=== PATIENT | female | born 1985 | race African-American/Black ===

== ENCOUNTER 2016-11-15 20:25 | Emergency (ER) | payer OTHER, MEDICAID ==
[2016-11-15 20:54] VITALS: BP 131/79; PULSE 86
--- NOTE | 2016-11-15 21:18 | PD ---
HPI Chief Complaint sensitivity to light Date Seen: November 15, 2016 Time Seen: 21:00 Travel History International Travel<30 Days: No Contact w/Intl Traveler<30Days: No Known Affected Area: No History of Present Illness HPI Pt is a 30 y/o with IUP at 26 wks who presents for eval for sensitivity to light. Pt states that when she was at work today, she felt like it was hard to focus her eyes. States vision wasn't blurry, but she just felt like she couldn't focus well. Elizabeth like someone shining light in her eyes. Pt denies spots in vision. denies watery eyes, burning or itching. She denies headache, ruq pain, contractions, vb, lof. +FM Pt denies URI symptoms, denies fever. 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 Para: 2 : 5 Miscarriage: 2 History Past Medical History Medical History: Denies Significant Hx Obstetric History Obstetric History 2010 FT primary for distress 2013 FT repeat CD EAB x 2 Family History Family History: Negative Social History Alcohol Use: No Tobacco Use: No Substance Abuse: No Allergies-Medications (Allergen,Severity, Reaction): Coded Allergies: No Known Allergies (Verified , 05/04/14) Home Meds No Active Prescriptions or Reported Meds Review of Systems General / Constitutional: No: Fever, Weight Gain, Weight Loss, Chills, Other Eyes: Visual changes, Photophobia, No: Diploplia, Blurred Vision, Pain, Other HENT: Other, No: Headaches, Vertigo, Dental Difficulties, Lightheadedness Cardiovascular: No: Irregular Rhythm, Chest Pain or Discomfort, Palpitations, Tachycardia, Syncope, Varicosities, Edema, Cyanosis, Other Respiratory: No: Cough, Short of Breath, Wheezing, Other Gastrointestinal: No: Nausea, Vomiting, Diarrhea, Abdominal Pain, Hematemesis, Hematochezia, Constipation, Changes in Bowel Habits, Indigestion, Loss of Appetite, Other Genitourinary: No: Urgency, Frequency, Dysuria, Nocturia, Hematuria, Decreased Urinary Output, Oliguria, Hesitancy, Dribbling, Incontinence, Pelvic Pain, Dyspareunia, Discharge, Menorrhagia, Vaginal Bleeding, Other Musculoskeletal: No: Limited ROM, Weakness, Cramping, Edema, Pain, Other Skin: No Rash, No Itching, No Dryness, No Lumps, No Change in Pigmentation, No Change in Nails, No Alopecia, No Lesions, No Breast Lumps, No Breast Tenderness , No Breast Swelling, No Other Neurologic: No: Weakness, Dizziness, Syncope, Focal Abnormalities, Coordination Problem, Headache, Slurred Speech, Seizures, Other Psychiatric: No: Anxiety, Depression, Suicidal Ideations, Disorder of Thought, Mood Disorder, Substance Abuse, Homicidal Ideation, Other Endocrine: No: Heat Intolerance, Cold Intolerance, Polydipsia, Polyuria, Other Hematologic/Lymphatic: No Easy Bruising, No Lymph Node Enlargement, No Other Physical Exam VS: 131/79, 86, 18 Narrative GENERAL: Well-nourished, well-developed patient. SKIN: Warm and dry. HEAD: Normocephalic and atraumatic. EYES: mild conjunctival injection. EOMI, PERRL ENT: No nasal drainage noted. Mucous membranes pink. Airway patent. NECK: Supple, trachea midline. No JVD. CARDIOVASCULAR: Regular rate and rhythm RESPIRATORY: non-labored ABDOMEN/GI: Abdomen soft, non-tender, bowel sounds present, no rebound, no guarding Gravid GENITOURINARY: FHT's: Category: [nonreactive, reassuring for gest age ] Baseline: [140] Reactive: [-] Variability: [-] Decels: [-] EXTREMITIES: No cyanosis or edema. BACK: Nontender without obvious deformity. No CVA tenderness. NEUROLOGICAL: Awake and alert. Motor and sensory grossly within normal limits. Five out of 5 muscle strength in all muscle groups. Normal speech. Data Data Vital Signs Reviewed: Yes Orders Vital Signs (Adult) .ON ADMISSION (11/15/16 21:08) ^ Labor Status (11/15/16 21:08) MDM Narrative Course / MDM 30 y/o with IUP at 26 wks with light sensitivity --BP normal and no headache, so unlikely preeclampsia --sclera slightly injected, rec hydrating eye drops, rest; advised pt to notify Dr. Feng if symptoms do not improve or if they worsen Diagnosis Diagnosis: Primary Impression: Sensitivity to light Additional Impression: 26 weeks gestation of Disposition: DISCHARGE HOME Condition: Stable Scripts No Active Prescriptions or Reported Meds Dionicio Gomez MD November 15, 2016 21:18
== END 2016-11-15 22:08 | disposition home or self-care (01) ==
LOC: HOBED 20:25
DX: O99.89 Other specified diseases and conditions complicating pregnancy, childbirth and the puerperium (principal); H53.149 Visual discomfort, unspecified; Z3A.26 26 weeks gestation of pregnancy
CPT/HCPCS: 99284

== ENCOUNTER → 2017-01-27 | Outpatient (CLI) | payer MEDICAID | LOC: HPND 12:05 | PROVIDERS: ATTEND Obstetrics & Gynecology | DX: O41.03X0 Oligohydramnios, third trimester, not applicable or unspecified (principal) | CPT/HCPCS: 76815 ==

== ENCOUNTER 2017-02-07 09:22 | Inpatient (IN) | payer MEDICAID, OTHER ==
[2017-02-11] VITALS (9 sets, daily range): BP systolic 102–127; BP diastolic 56–71; PULSE 72–88; RESP 12–20; TEMP 97.5–98.4; O2SAT 96–98
[2017-02-11] MEDS ORDERED: LACTATED RINGER'S 1000 ML INJ 1,000 ML IV ONE (10:55)
[2017-02-11 11:09] LABS: AUTOMATED NEUTROPHIL # 5.3 TH/MM3 (1.8-7.7); BASOPHIL % 0.3 % (0.0-2.0); EOSINOPHIL # 0.1 TH/MM3 (0-0.4); EOSINOPHIL % 0.8 % (0.0-4.0); HEMATOCRIT 32.4 % (35.0-46.0); HEMO FLAGS DIFF FINAL; LYMPH % 20.2 % (9.0-44.0); LYMPHOCYTE # 1.5 TH/MM3 (1.0-4.8); MEAN CELL VOLUME 70.9 FL (80.0-100.0); MEAN CORPUSCULAR HEMOGLOBIN 22.2 PG (27.0-34.0); MEAN CORPUSCULAR HGB CONC 31.3 % (32.0-36.0); MONO % 8.5 % (0.0-8.0); NEUT % 70.2 % (16.0-70.0); PLATELET COUNT 187 TH/MM3 (150-450); RED BLOOD COUNT 4.57 MIL/MM3 (4.00-5.30); RED CELL DISTRIBUTION WIDTH 16.8 % (11.6-17.2); WHITE BLOOD COUNT 7.6 TH/MM3 (4.0-11.0)
--- NOTE | 2017-02-11 11:23 | MH ---
cc: David SHORE DATE OF ADMISSION 02/11/2017 ADMITTING DIAGNOSIS 1. Intrauterine at 39 weeks 2. Previous section, desires repeat. HISTORY OF PRESENT ILLNESS Ms. Heath is a 31-year-old black female para 2-0-1-2 who has been followed in my office for care. She has had a relatively unremarkable course and is coming in now for a repeat section. PAST OB HISTORY She has had a section in the past x2. Her Pap smear was negative in July 2016. Her CT, GC and trichomonas were all negative and 08/03. Her blood type is O+. PAST GYNECOLOGIC HISTORY Remarkable for abnormal Pap's with ascus in the Pap. Her last one was negative. PAST SURGICAL HISTORY Remarkable for a delivery in 2013. PAST MEDICAL HISTORY Remarkable for anemia. FAMILY HISTORY High blood pressure in the mother and father. SOCIAL HISTORY She does not drink, smoke, or take drugs. ALLERGIES No known drug allergies. MEDICATIONS Her current medications are: 1. Vitamins one p.o. q. Day 2. Iron one a day REVIEW OF SYSTEMS She denies any headaches, spots in front of her eyes. No shortness of breath or chest pain. No chest pressure. She denies any problems with the bowel movements or voiding. She reports good movement. No rupture of membranes or bleeding. PHYSICAL EXAM This is a well-nourished female in no acute distress resting comfortably on the gurney. VITAL SIGNS: Her weight is 309, blood pressure is 124/78. HEENT: Normocephalic, atraumatic. NECK: Supple. Trachea is in the midline. No thyromegaly or adenopathy. CHEST: Clear to auscultation and percussion. HEART: Regular rate and rhythm. ABDOMEN: Gravid, large, nontender. Pfannenstiel incision is well-healed. PELVIC: The pelvic exam is deferred. EXTREMITIES: No clubbing, cyanosis, or edema. ASSESSMENT/PLAN 1. Intrauterine at 39 weeks. 2. Previous section, desires repeat. We will go ahead and do that. She did desire a tubal ligation, however, she switched her insurance in the middle of the and we did not get tubal papers, so we will not be doing that today. 3. Positive group B Strep. She is going to get preop antibiotics anyway and we will give her two grams of Ancef. R. MD MINNIE Bethea/JOSE /10:40 AM /11:01 AM
[2017-02-11 11:24] LABS: BACTERIA, URINE RARE /hpf; BLOOD, URINE NEG (NEG); COMMENT (UR) CULT NOT INDICATED; CULTURE IF INDICATED CULT NOT INDICATED; GLUCOSE,URINE NEG (NEG); KETONE, URINE NEG (NEG); MUCUS URINE MANY /lpf (OCC); NITRITE,URINE NEG (NEG); SQUAMOUS EPITHELIAL CELL URINE 13 /hpf (0-5); URINE COLOR YELLOW (YELLW/STRAW)
[2017-02-11] MEDS ORDERED: LACTATED RINGER'S 1000 ML INJ 1,000 ML IV SCH ×2 (11:25→19:38)
[2017-02-11] MEDS ORDERED: ceFAZolin 2 GM PREMIX 50 ML IV SCH (12:00)
[2017-02-11] MEDS ORDERED: OXYTOCIN 10 UNIT/ML AMP ONE (12:18)
[2017-02-11] MEDS ORDERED: CITRIC ACID-SODIUM CITRATE LIQ 30 ML UDC PO SCH (12:30)
[2017-02-11] MEDS ORDERED: HYDROmorphone HCL PF 2 MG/ML VIAL ONE (13:47)
[2017-02-11] MEDS ORDERED: MIDAZOLAM HCL 5 MG/5 ML VIAL ONE (14:30)
[2017-02-11] MEDS ORDERED: MORPHINE SULFATE PF 5 MG/10 ML VIAL ONE (14:30)
[2017-02-11] MEDS ORDERED: fentaNYL CITRATE 250 MCG/5 ML AMP ONE (14:30)
[2017-02-11] MEDS ORDERED: KETOROLAC TROMETHAMINE 30 MG/ML (IVP) VIAL ONE (14:33)
[2017-02-11] MEDS ORDERED: ACETAMINOPHEN 1000 MG/100 ML VIAL IV ONE (14:34)
[2017-02-11] MEDS ORDERED: OXYTOCIN 30 UNITS-500ML PREMIX 500 ML IV ONE ×2 (14:45)
[2017-02-11] MEDS ORDERED: ZOLPIDEM TARTRATE 5 MG TAB PO PRN (14:45)
[2017-02-11] MEDS ORDERED: SODIUM CHLORIDE 0.9% FLUSH 10 ML FLUSH IV FLUSH PRN (14:45)
[2017-02-11] MEDS ORDERED: SIMETHICONE 80 MG CHEWABLE TAB PO PRN (14:45)
[2017-02-11] MEDS ORDERED: ONDANSETRON HCL 4 MG/2 ML VIAL IV PUSH PRN (14:45)
[2017-02-11] MEDS ORDERED: OXYTOCIN 30 UNITS-500ML PREMIX 500 ML ONE (14:57)
[2017-02-11] MEDS ORDERED: diphenhydrAMINE HCL 25 MG CAP PO PRN (17:00)
[2017-02-11] MEDS ORDERED: SODIUM CHLORIDE 0.9% FLUSH 10 ML FLUSH IV FLUSH SCH (21:00)
[2017-02-12 00:06] VITALS: BP 117/59; PULSE 91; RESP 18; TEMP 98.4
[2017-02-12] MEDS ORDERED: OXYTOCIN 30 UNITS-500ML PREMIX 500 ML IV PRN (00:45)
[2017-02-12] MEDS: oxyCODONE/ACETAMINOPHEN 5 MG/325 MG TAB PO PRN ×4 (03:51→22:49)
[2017-02-12] MEDS: IBUPROFEN 600 MG TAB PO PRN ×4 (03:51→22:50)
[2017-02-12 04:10] VITALS: BP 121/71; PULSE 87; RESP 20; TEMP 98.1
[2017-02-12 07:30] LABS: BASOPHIL % 0.2 % (0.0-2.0); EOSINOPHIL # 0.1 TH/MM3 (0-0.4); EOSINOPHIL % 0.9 % (0.0-4.0); HEMATOCRIT 26.9 % (35.0-46.0); HEMO FLAGS DIFF FINAL; LYMPH % 14.6 % (9.0-44.0); LYMPHOCYTE # 1.4 TH/MM3 (1.0-4.8); MEAN CELL VOLUME 70.9 FL (80.0-100.0); MEAN CORPUSCULAR HEMOGLOBIN 22.7 PG (27.0-34.0); MONO % 8.7 % (0.0-8.0); NEUT % 75.6 % (16.0-70.0); PLATELET COUNT 156 TH/MM3 (150-450); RED BLOOD COUNT 3.79 MIL/MM3 (4.00-5.30); RED CELL DISTRIBUTION WIDTH 17.3 % (11.6-17.2); WHITE BLOOD COUNT 9.3 TH/MM3 (4.0-11.0)
[2017-02-12 08:26] VITALS: BP 103/64; PULSE 83; RESP 16; TEMP 97.5
--- NOTE | 2017-02-12 11:06 | HHI.OB ---
Subjective Post Operative Day: 1 Remarks no complaints Objective Vitals/I&O Vital Signs Date Time Temp Pulse Resp B/P Pulse Ox O2 Delivery O2 Flow Rate FiO2 02/12/17 08:26 97.5 83 16 103/64 02/12/17 04:10 98.1 87 20 121/71 02/12/17 00:06 98.4 91 18 117/59 02/11/17 20:12 114/65 02/11/17 20:12 97.5 18 02/11/17 20:12 79 02/11/17 15:45 98.4 80 18 112/65 02/11/17 15:14 80 12 114/56 98 02/11/17 15:04 97.6 02/11/17 15:00 83 20 127/56 96 02/11/17 14:48 72 18 122/71 97 02/11/17 14:34 98 02/11/17 14:33 83 20 102/57 02/11/17 14:20 98 02/11/17 14:20 97.5 88 16 110/64 Result Diagram: 02/12/17 0642 Objective Remarks GENERAL: Well-nourished, well-developed patient. CARDIOVASCULAR: Regular rate and rhythm without murmurs, gallops, or rubs. RESPIRATORY: Breath sounds equal bilaterally. No accessory muscle use. ABDOMEN/GI: Abdomen soft, non-tender, bowel sounds present. Incision: dressing Clean, dry and intact. Fundus: Firm, non-tender at umbilicus. GENITOURINARY: Light to moderate bleeding. EXTREMITIES: No cyanosis or edema, non-tender, without signs of DVT. Medications and IVs Current Medications Medications (Trade) Dose Ordered Sig/Ke Route Start Time Stop Time Status Last Admin (Lr 1000 ml Inj) 1,000 ml @ 100 mls/hr Q10H IV 02/11/17 19:38 02/12/17 15:37 02/11/17 20:20 (NS Flush) 2 ml BID IV FLUSH 02/11/17 21:00 (NS Flush) 2 ml UNSCH PRN IV FLUSH 02/11/17 14:45 (Mylicon Chew) 80 mg QID PRN PO 02/11/17 14:45 (Motrin) 600 mg Q6H PRN PO 02/11/17 14:45 02/12/17 03:51 (Percocet 5-325 Mg) 1 tab Q4H PRN PO 02/11/17 14:45 02/12/17 03:51 (Percocet 5-325 Mg) 2 tab Q4H PRN PO 02/11/17 14:45 (Shelia-Colace) 2 tab Q12H PRN PO 02/11/17 14:45 (Ambien) 5 mg HS PRN PO 02/11/17 14:45 (M-M-R Ii Inj) 0.5 ml ONCE ONCE SQ 02/12/17 16:00 02/12/17 16:01 (Boostrix Inj) 0.5 ml ONCE ONCE IM 02/12/17 16:00 02/12/17 16:01 02/12/17 04:00 (Zofran Inj) 4 mg Q6H PRN IV PUSH 02/11/17 14:45 (Benadryl) 25 mg Q4H PRN PO 02/11/17 17:00 02/12/17 00:04 Assessment/Plan Problem List: (1) delivery delivered Assessment and Plan POD #1 C/S dr Feng, pt doing well Discharge Planning routine Attending Attestation pt seen by Nunu Butler MD Feb 12, 2017 11:06
[2017-02-12] MEDS: DOCUSATE SODIUM 50 MG/SENNA 8.6 MG TAB PO PRN ×2 (11:20→22:50)
[2017-02-12 11:56] VITALS: BP 106/67; PULSE 98; RESP 16; TEMP 97.8
[2017-02-12] MEDS ORDERED: DIPHTH/TETANUS/ACEL PERTUSSIS (BOOSTER) 0.5 ML VIAL/PFS IM ONE (16:00)
[2017-02-12] MEDS ORDERED: MEASLES, MUMPS, RUBELLA VACCINE 0.5 ML VIAL SQ ONE (16:00)
[2017-02-12 20:10] VITALS: BP 109/65; PULSE 96; RESP 18; TEMP 97.4; O2SAT 100
[2017-02-13] MEDS: IBUPROFEN 600 MG TAB PO PRN ×3 (04:48→17:24)
[2017-02-13] MEDS: oxyCODONE/ACETAMINOPHEN 5 MG/325 MG TAB PO PRN ×3 (04:48→17:24)
[2017-02-13 08:00] VITALS: BP 113/72; PULSE 102; PULSE 76; RESP 16; RESP 7; RESP 9; TEMP 98.1
--- NOTE | 2017-02-13 09:49 | HHI.OB ---
Subjective Post Operative Day: 2 Remarks no complaints, walking hallways Objective Vitals/I&O Vital Signs Date Time Temp Pulse Resp B/P Pulse Ox O2 Delivery O2 Flow Rate FiO2 02/13/17 08:00 76 7 02/13/17 08:00 16 02/13/17 08:00 98.1 102 9 113/72 02/12/17 20:10 97.4 96 18 100 02/12/17 20:10 109/65 02/12/17 11:56 97.8 98 16 106/67 Result Diagram: 02/12/17 0642 Objective Remarks GENERAL: Well-nourished, well-developed patient. CARDIOVASCULAR: Regular rate and rhythm without murmurs, gallops, or rubs. RESPIRATORY: Breath sounds equal bilaterally. No accessory muscle use. ABDOMEN/GI: Abdomen soft, non-tender, bowel sounds present. Incision: Clean, dry and intact. Fundus: Firm, non-tender at umbilicus. GENITOURINARY: Light to moderate bleeding. EXTREMITIES: No cyanosis or edema, non-tender, without signs of DVT. Medications and IVs Current Medications Medications (Trade) Dose Ordered Sig/Ke Route Start Time Stop Time Status Last Admin (NS Flush) 2 ml BID IV FLUSH 02/11/17 21:00 (NS Flush) 2 ml UNSCH PRN IV FLUSH 02/11/17 14:45 (Mylicon Chew) 80 mg QID PRN PO 02/11/17 14:45 02/12/17 17:22 (Motrin) 600 mg Q6H PRN PO 02/11/17 14:45 02/13/17 04:48 (Percocet 5-325 Mg) 1 tab Q4H PRN PO 02/11/17 14:45 02/13/17 04:48 (Percocet 5-325 Mg) 2 tab Q4H PRN PO 02/11/17 14:45 02/12/17 17:18 (Hselia-Colace) 2 tab Q12H PRN PO 02/11/17 14:45 02/12/17 22:50 (Ambien) 5 mg HS PRN PO 02/11/17 14:45 (Zofran Inj) 4 mg Q6H PRN IV PUSH 02/11/17 14:45 (Benadryl) 25 mg Q4H PRN PO 02/11/17 17:00 02/12/17 00:04 Assessment/Plan Problem List: (1) delivery delivered Assessment and Plan POD #2 C/S dr Feng, pt doing well Discharge Planning routine Attending Attestation pt seen by Nunu Butler MD Feb 13, 2017 09:49
[2017-02-13] MEDS: DOCUSATE SODIUM 50 MG/SENNA 8.6 MG TAB PO PRN (10:55)
[2017-02-14] MEDS: IBUPROFEN 600 MG TAB PO PRN ×3 (01:23→14:24)
[2017-02-14] MEDS: DOCUSATE SODIUM 50 MG/SENNA 8.6 MG TAB PO PRN (01:23)
[2017-02-14] MEDS: oxyCODONE/ACETAMINOPHEN 5 MG/325 MG TAB PO PRN ×2 (01:23→08:46)
[2017-02-14 08:00] VITALS: BP 117/73; PULSE 97; RESP 18; TEMP 97.4
--- NOTE | 2017-02-14 09:47 | HHI.OB ---
Subjective Post Operative Day: 3 Objective Vitals/I&O Vital Signs Date Time Temp Pulse Resp B/P Pulse Ox O2 Delivery O2 Flow Rate FiO2 02/14/17 08:00 97.4 97 18 117/73 Result Diagram: 02/12/17 0642 Objective Remarks GENERAL: Well-nourished, well-developed patient. CARDIOVASCULAR: Regular rate and rhythm without murmurs, gallops, or rubs. RESPIRATORY: Breath sounds equal bilaterally. No accessory muscle use. ABDOMEN/GI: Abdomen soft, non-tender, bowel sounds present. Incision: steri strip Clean, dry and intact. Fundus: Firm, non-tender at umbilicus. GENITOURINARY: Light to moderate bleeding. EXTREMITIES: No cyanosis or edema, non-tender, without signs of DVT. Medications and IVs Current Medications Medications (Trade) Dose Ordered Sig/Ke Route Start Time Stop Time Status Last Admin (NS Flush) 2 ml BID IV FLUSH 02/11/17 21:00 (NS Flush) 2 ml UNSCH PRN IV FLUSH 02/11/17 14:45 (Mylicon Chew) 80 mg QID PRN PO 02/11/17 14:45 02/12/17 17:22 (Motrin) 600 mg Q6H PRN PO 02/11/17 14:45 02/14/17 08:46 (Percocet 5-325 Mg) 1 tab Q4H PRN PO 02/11/17 14:45 02/14/17 08:46 (Percocet 5-325 Mg) 2 tab Q4H PRN PO 02/11/17 14:45 02/13/17 09:49 (Shelia-Colace) 2 tab Q12H PRN PO 02/11/17 14:45 02/14/17 01:23 (Ambien) 5 mg HS PRN PO 02/11/17 14:45 (Zofran Inj) 4 mg Q6H PRN IV PUSH 02/11/17 14:45 (Benadryl) 25 mg Q4H PRN PO 02/11/17 17:00 02/12/17 00:04 Assessment/Plan Problem List: (1) delivery delivered Plan: routine (2) Anemia Plan: treat pp Assessment and Plan POD #3 pt doing well pain well managed with oral pain medication ambulate without diff routine care Discharge Planning today Jayda Ybarra Feb 14, 2017 09:47
--- NOTE | 2017-02-14 09:48 | HHI.DCPOC ---
Discharge Care Plan Diagnosis: (1) delivery delivered (2) Anemia Your Health Problems Are: delivery Report Symptoms to Your Doctor -Temperature above 100.5 degrees -Redness, of incision or excessive or foul smelling drainage -Unusual pain or calf pain -Increased vaginal bleeding -Painful or difficulty urinating -Feelings of extreme sadness or anxiety after 2 weeks Goals to Promote Your Health * To prevent worsening of your condition and complications * To maintain your health at the optimal level Directions to Meet Your Goals Take your medications as prescribed Follow your dietary instruction Follow activity as directed Ensure plenty of rest for recovery Drink fluids for hydration Keep your appointments as scheduled Take your immunizations and boosters as scheduled If your symptoms worsen call your PCP, if no PCP go to Urgent Care Center or Emergency Room Smoking is Dangerous to Your Health. Avoid second hand smoke Call the 24-hour crisis hotline for domestic abuse at Jayda Ybarra Feb 14, 2017 09:47
--- NOTE | 2017-02-14 09:53 | HHI.DS ---
Admission Date Feb 11, 2017 at 09:42 Discharge Date: Feb 14, 2017 Admitting Diagnosis term breech previous c section desires sterilization anemia Diagnosis: (1) delivery delivered Diagnosis: Principal (2) Anemia Diagnosis: Principal Delivery Date: Feb 11, 2017 : Repeat Reason: with bilateral tubal ligation : Male Brief History term previous c section breech presentation Hospital Course repeat c section and bilateral tubal ligation routine Pt Condition on Discharge: Good Discharge Disposition: Discharge Home Discharge Instructions Diet Instructions: As Tolerated, No Restrictions Additional Diet Instructions: Drink at least 8 - 16 oz bottles of water a day Activities You Can Perform: Shower Only-No Bath Activities to Avoid: Prolonged Standing, Strenuous Activity, Sexual Activity Additional Activity Instruc.: No driving until off pain medications Do not lift anything heavier than your baby in an carrier Follow up Referrals: CASTING REPAIRER - 1 Week @ [facility] Jayda Ybarra Feb 14, 2017 09:52
[2017-02-14] MEDS ORDERED: IBUP-232 PO (12:49)
[2017-02-14] MEDS ORDERED: OXYC1TAB63 PO (12:49)
--- NOTE | 2017-02-15 11:28 | MP ---
cc: MONEAMISHA DATE OF OPERATION February 11, 2017. PREOPERATIVE DIAGNOSES 1. Intrauterine at 39+ weeks 2. Desires repeat . POSTOPERATIVE DIAGNOSES. 1. Intrauterine at 39+ weeks. 2. Breech presentation. 3. Desires repeat . PROCEDURE Repeat low transverse section anesthesia. ANESTHESIA Spinal. SURGEON David Feng MD FINDINGS A normal uterus, normal tubes, normal ovaries. Breech with good Apgars. COMPLICATIONS None. COUNTS Correct. ESTIMATED BLOOD LOSS 500 cc. FLUIDS Crystalloids. DISPOSITION The patient tolerated the procedure well and went to Recovery room in good condition. OPERATIVE PROCEDURE The patient was taken to the operating room, identified by name band and verbally given a spinal anesthetic and prepped and draped in the usual sterile fashion for a section. The Nava catheter was inserted and a time-out was taken. At this time a Pfannenstiel incision was made, carried down to the fascia. The fascia was taken off the rectus muscles by blunt and sharp dissection. The rectus muscles were spread bluntly and the peritoneum entered under direct vision. A bladder flap was attempted. It was kind of scarred down and once this had been achieved, the uterus was scored in a transverse manner along the lower uterine segment and taken down until the uterine cavity was entered. Clear fluid was noted. I felt for the vertex, but there was a butt. I grabbed for the feet. I got both feet and gently rotated the baby out, reduced the arms, reduced the head and delivered the baby. Hypopharynx and nasopharynx were suctioned and the cord was left for 45 seconds. The cord was then doubly clamped and cut and the handed to the resuscitation team present. The placenta was removed manually. I could not create a donation because she lives in [place]. The uterus was then curettaged several times with a wet lap. The uterine incision was then repaired after the uterus was delivered from the abdomen in two layers with 0 Vicryl, the second layer imbricating the first in a running fashion. The cul-de-sac and gutters were cleaned of blood and debris. The uterus was delivered back into the abdomen. The muscles were reapproximated with 0 Vicryl interrupted. The fascia was repaired with 0 Vicryl in a running fashion from lateral to midline bilaterally. The subcu was repaired with a 3-0 Vicryl. The skin was repaired with 4-0 Monocryl. She tolerated the procedure well and went to the recovery room in good condition. R. MD MINNIE Bethea/MEGAN /12:49 PM /11:18 AM
== END 2017-02-14 14:53 | disposition home or self-care (01) | DRG 766 ==
LOC: H2EB 02-11 09:42 → H1EA 02-11 15:36
PROVIDERS: ADMIT Obstetrics & Gynecology; ATTEND Obstetrics & Gynecology
PROC: 10D00Z1 Extraction of Products of Conception, Low, Open Approach (ICD-10-PCS; principal; 2017-02-11)
DX: O34.211 Maternal care for low transverse scar from previous cesarean delivery (principal); D64.9 Anemia, unspecified; Z37.0 Single live birth; O32.1XX0 Maternal care for breech presentation, not applicable or unspecified; O99.02 Anemia complicating childbirth; Z3A.39 39 weeks gestation of pregnancy; Z30.2 Encounter for sterilization
CPT/HCPCS: 59025; 81001; 85025; 86850; 86900; 86901; 90715; J0131; J0690; J1170; J1885; J2250; J2274; J2590; J3010; J7120

== ENCOUNTER 2017-02-22 15:37 | Inpatient (IN) | payer MEDICAID ==
[2017-02-22] VITALS (95 sets, daily range): BP systolic 157–191; BP diastolic 69–100; PULSE 64–115; RESP 18–24; TEMP 98.9–99.7; O2SAT 74–100
[~2017-02-22] VITALS: Ht 177.8 cm; Wt 137.8 kg
[~2017-02-22 15:37] MED LIST: IBUP-232 PO; OXYC1TAB63 PO
[2017-02-22] MEDS ORDERED: LABETALOL HCL 100 MG/20 ML VIAL ONE (16:30)
[2017-02-22] MEDS ORDERED: LABETALOL HCL 100 MG/20 ML VIAL IV PUSH ONE ×2 (16:30→17:15)
[2017-02-22 16:59] LABS: HEMATOCRIT 26.7 % (35.0-46.0); MEAN CORPUSCULAR HEMOGLOBIN 22.9 PG (27.0-34.0); MEAN CORPUSCULAR HGB CONC 32.7 % (32.0-36.0); PLATELET COUNT 245 TH/MM3 (150-450); RED BLOOD COUNT 3.81 MIL/MM3 (4.00-5.30); RED CELL DISTRIBUTION WIDTH 17.5 % (11.6-17.2); REVIEW FLAG FINAL; WHITE BLOOD COUNT 6.5 TH/MM3 (4.0-11.0)
[2017-02-22 17:01] LABS: BACTERIA, URINE RARE /hpf; BLOOD, URINE SMALL (NEG); COMMENT (UR) CULT NOT INDICATED; CULTURE IF INDICATED CULT NOT INDICATED; GLUCOSE,URINE NEG (NEG); HYALINE CAST, URINE 2 /lpf (RARE); KETONE, URINE NEG (NEG); MUCUS URINE FEW /lpf (OCC); NITRITE,URINE NEG (NEG); PH, URINE 5.5 (5.0-8.5); SQUAMOUS EPITHELIAL CELL URINE 1 /hpf (0-5); URINE COLOR YELLOW (YELLW/STRAW)
[2017-02-22] MEDS ORDERED: ONDANSETRON HCL 4 MG/2 ML VIAL IV PRN (17:30)
[2017-02-22] MEDS ORDERED: IBUPROFEN 800 MG TAB PO PRN (17:30)
[2017-02-22] MEDS ORDERED: SODIUM CHLORIDE 0.9% FLUSH 5 ML FLUSH IV PRN (17:30)
[2017-02-22] MEDS ORDERED: hydrALAZINE HCL 20 MG/ML VIAL IV PUSH PRN ×2 (17:30→17:45)
[2017-02-22] MEDS ORDERED: ACETAMINOPHEN 325 MG TAB PO PRN (17:30)
[2017-02-22] MEDS ORDERED: ONDANSETRON ODT 4 MG TAB PO PRN (17:30)
[2017-02-22] MEDS ORDERED: DOCUSATE SODIUM 100 MG CAP PO PRN (17:30)
[2017-02-22 17:42] LABS: ALT (GPT) 44 U/L (10-53); ANION GAP 6 MEQ/L (5-15); AST (GOT) 21 U/L (15-37); BICARBONATE 29.7 MEQ/L (21.0-32.0); BLOOD UREA NITROGEN 13 MG/DL (7-18); CHLORIDE 107 MEQ/L (98-107); GLOMERULAR FILTRATION RATE 90 ML/MIN (>89); POTASSIUM 3.9 MEQ/L (3.5-5.1); SODIUM (NA) 143 MEQ/L (136-145); URIC ACID 8.7 MG/DL (2.6-6.0)
[2017-02-22 17:44] LABS: ALKALINE PHOSPHATASE 87 U/L (45-117); TOTAL BILIRUBIN ADULT 0.2 MG/DL (0.2-1.0)
--- NOTE | 2017-02-22 18:02 | HHI.HP ---
History & Physical H&P HPI Chief Complaint elevated blood pressure, headache Date Seen: Feb 22, 2017 Time Seen: 17:00 Travel History International Travel<30 Days: No Contact w/Intl Traveler<30Days: No Known Affected Area: No History of Present Illness HPI Pt is a 31 y/o s/p repeat delivery on 02/11/17 who presents for evaluation of headache, increased BP. PT states she woke up around 5 am with headache. Progressively worse throughout the morning. took some ibuprofen at 11 am with no relief. took BP and was "high". Called Dr. Feng's office and was told to come in for evaluation. PT denies h/o hypertension except about 2 weeks after her last delivery. states she took BP medication for a few weeks then was able to d/c. Denies blood pressure issues during this . Pt denies visual changes, ruq pain. She reports some mild swelling of left foot /ankle. Denies fever, incision issues. has been ambulating, voiding well. Bottle feeding baby. Para: 3 : 5 History (Limited) History Past Medical History Narrative Medical obesity Past Surgical History Narrative Surgical x 3 Family History Family History: Negative Social History Alcohol Use: No Tobacco Use: No Substance Abuse: No Allergies-Medications Allergies-Medications (Allergen,Severity, Reaction): Coded Allergies: No Known Allergies (Verified , 02/11/17) Home Meds Active Scripts Oxycodone-Acetaminophen 5-325 mg Tab1 Tab PO Q4H #30 TAB Prov:David Feng MD 02/14/17 Ibuprofen 600 Mg [id number] Mg PO Q6H #30 TAB Prov:David Feng MD 02/14/17 Narrative Medication pt states she last took percocet 2 days ago. ROS Review of Systems General / Constitutional: No: Fever, Chills Eyes: No: Diploplia, Blurred Vision HENT: Headaches Cardiovascular: No: Irregular Rhythm, Chest Pain or Discomfort, Palpitations, Tachycardia, Syncope, Varicosities, Edema, Cyanosis, Other Respiratory: No: Cough, Short of Breath, Wheezing, Other Gastrointestinal: No: Nausea, Vomiting, Diarrhea, Abdominal Pain, Hematemesis, Hematochezia, Constipation, Changes in Bowel Habits, Indigestion, Loss of Appetite, Other Musculoskeletal: Edema Skin: No Rash, No Itching, No Dryness, No Lumps, No Change in Pigmentation, No Change in Nails, No Alopecia, No Lesions, No Breast Lumps, No Breast Tenderness , No Breast Swelling, No Other Neurologic: No: Weakness, Dizziness, Syncope, Focal Abnormalities, Coordination Problem, Headache, Slurred Speech, Seizures, Other Psychiatric: No: Anxiety, Depression, Suicidal Ideations, Disorder of Thought, Mood Disorder, Substance Abuse, Homicidal Ideation, Other Physical Exam Physical Exam Vital Signs Date Time Temp Pulse Resp B/P Pulse Ox O2 Delivery O2 Flow Rate FiO2 02/22/17 17:45 70 97 02/22/17 17:41 66 169/89 02/22/17 17:36 66 179/87 02/22/17 17:35 68 100 02/22/17 17:34 66 181/90 02/22/17 17:30 69 100 02/22/17 17:26 69 186/87 02/22/17 17:25 69 100 02/22/17 17:20 66 187/92 100 02/22/17 17:20 67 02/22/17 17:15 68 100 02/22/17 17:10 71 100 02/22/17 17:06 73 183/94 02/22/17 17:05 67 100 02/22/17 17:02 69 186/94 02/22/17 17:02 24 02/22/17 17:00 72 99 02/22/17 16:58 71 185/97 02/22/17 16:56 66 190/100 02/22/17 16:55 64 100 02/22/17 16:40 69 93 02/22/17 16:31 72 174/94 02/22/17 16:30 70 97 02/22/17 16:26 64 182/97 02/22/17 16:25 69 96 Narrative GENERAL: Well-nourished, well-developed patient. SKIN: Warm and dry. HEAD: Normocephalic and atraumatic. EYES: No scleral icterus. No injection or drainage. ENT: No nasal drainage noted. Mucous membranes pink. Airway patent. NECK: Supple, trachea midline. No JVD. CARDIOVASCULAR: Regular rate and rhythm without murmurs, gallops, or rubs. RESPIRATORY: Breath sounds equal bilaterally. No accessory muscle use. BREASTS: Bilateral exam showed no masses , no retractions, no nipple discharge. ABDOMEN/GI: Abdomen soft, non-tender, bowel sounds present, no rebound, no guarding incision c/d/i EXTREMITIES: No cyanosis. trace ankle edema. BACK: Nontender without obvious deformity. No CVA tenderness. NEUROLOGICAL: Awake and alert. Motor and sensory grossly within normal limits. Five out of 5 muscle strength in all muscle groups. Normal speech. unable to elicit patellar DTRs. 2+ biceps DTRs Data Data Data Orders Vital Signs (Adult) .ON ADMISSION (02/22/17 16:25) ^ Labor Status (02/22/17 16:25) Urinalysis - C+S If Indicated (02/22/17 16:25) Cbc No Diff, Includes Plts (02/22/17 16:25) Comprehensive Metabolic Panel (02/22/17 16:25) Uric Acid (02/22/17 16:25) Protein Creat Ratio, Random Ur (02/22/17 16:25) Labetalol Inj (Trandate Inj) (02/22/17 16:30) Labetalol Inj (Trandate Inj) (02/22/17 16:30) Labetalol Inj (Trandate Inj) (02/22/17 17:15) Place In Observation (02/22/17 ) Code Status (02/22/17 17:18) Resp Pulse Oximetry (02/22/17 ) Activity Bed Rest (02/22/17 17:18) Intake + Output Q1H (02/22/17 17:18) Notify Parameters (02/22/17 17:18) ^ Check Deep Tendon Reflexes Q1H (02/22/17 17:18) Diet Liquid (02/22/17 Dinner) Lactated Ringer's 1000 Ml Inj (Lr 1000 M (02/22/17 17:18) Sodium Chloride 0.9% Flush (Ns Flush) (02/22/17 17:30) Sodium Chloride 0.9% Flush (Ns Flush) (02/22/17 21:00) Hydralazine Inj (Apresoline Inj) (02/22/17 17:30) Hydralazine Inj (Apresoline Inj) (02/22/17 17:45) Acetaminophen (Tylenol) (02/22/17 17:30) Ondansetron Inj (Zofran Inj) (02/22/17 17:30) Ondansetron Odt (Zofran Odt) (02/22/17 17:30) Docusate Sodium (Colace) (02/22/17 17:30) Labetalol (Trandate) (02/22/17 21:00) Ibuprofen (Motrin) (02/22/17 17:30) Ob (2e) Additional Admit Info (02/22/17 17:43) Labs Laboratory Tests Test 02/22/17 16:45 White Blood Count 6.5 Red Blood Count 3.81 Hemoglobin 8.7 Hematocrit 26.7 Mean Corpuscular Volume 70.0 Mean Corpuscular Hemoglobin 22.9 Mean Corpuscular Hemoglobin 32.7 Concent Red Cell Distribution Width 17.5 Platelet Count 245 Mean Platelet Volume 8.8 Urine Color YELLOW Urine Turbidity HAZY Urine pH 5.5 Urine Specific [place] 1.021 Urine Protein TRACE Urine Glucose (UA) NEG Urine Ketones NEG Urine Occult Blood SMALL Urine Nitrite NEG Urine Bilirubin NEG Urine Urobilinogen LESS THAN 2.0 Urine Leukocyte Esterase MOD Urine RBC 1 Urine WBC 7 Urine Squamous Epithelial 1 Cells Urine Bacteria RARE Urine Hyaline Casts 2 Urine Mucus FEW Microscopic Urinalysis Comment CULT NOT INDICATED Sodium Level 143 Potassium Level 3.9 Chloride Level 107 Carbon Dioxide Level 29.7 Anion Gap 6 Blood Urea Nitrogen 13 Creatinine 0.89 Estimat Glomerular Filtration 90 Rate Random Glucose 73 Uric Acid 8.7 Calcium Level 8.5 Total Bilirubin 0.2 Aspartate Amino Transf 21 (AST/SGOT) Alanine Aminotransferase 44 (ALT/SGPT) Alkaline Phosphatase 87 Total Protein 6.6 Albumin 3.1 MDM MDM Narrative Course / MDM 31 y/o s/p repeat on 02/11/17 with new-onset elevated BP, severe range BP IV labetalol 20 mg given at 1630 IV labetalol 40 mg given 15 minutes later start po labetalol 200 mg bid admit for observation, blood pressure control d/w Dr. Feng. Dioincio Gomez MD Feb 22, 2017 18:02
[2017-02-22] MEDS ORDERED: MORPHINE SULFATE 4 MG/ML INJ IV ONE (18:45)
[2017-02-22] MEDS: LACTATED RINGER'S 1000 ML INJ 1,000 ML IV SCH (18:49)
[2017-02-22] MEDS: SODIUM CHLORIDE 0.9% FLUSH 5 ML FLUSH IV SCH (19:28)
[2017-02-22] MEDS ORDERED: hydrALAZINE HCL 20 MG/ML VIAL ONE (20:20)
[2017-02-22] MEDS ORDERED: hydrALAZINE HCL 20 MG/ML VIAL IV PUSH ONE (20:45)
[2017-02-22] MEDS ORDERED: cloNIDine HCL 0.1 MG TAB PO SCH (21:00)
[2017-02-22] MEDS ORDERED: LABETALOL HCL 200 MG TAB PO SCH ×2 (21:00→22:15)
[2017-02-22] MEDS ORDERED: IOHEXOL 350 MG/ML 10 ML VIAL (for RAD DIAG) IV ONE (21:13)
--- NOTE | 2017-02-22 21:30 | RADRPT ---
EXAM DATE/TIME: 02/22/2017 20:50 [facility] COMPARISON: No previous studies available for comparison. INDICATIONS : Shortness of breath. Evaluate for pulmonary embolism. IV CONTRAST: 75 cc Omnipaque 350 (iohexol) IV RADIATION DOSE: 25.80 CTDIvol (mGy) MEDICAL HISTORY : None SURGICAL HISTORY : None. ENCOUNTER: Initial ACUITY: 1 day PAIN SCALE: 5/10 LOCATION: chest TECHNIQUE: Volumetric scanning of the chest was performed using a pulmonary embolism protocol MIP images were re constructed. Using automated exposure control and adjustment of the mA and/or kV according to patien t size, radiation dose was kept as low as reasonably achievable to obtain optimal diagnostic quality images. DICOM format image data is available electronically for review and comparison. Follow-up recommendations for incidentally detected pulmonary nodules are based at a minimum on nodul e size and patient risk factors according to Fleischner Society Guidelines. FINDINGS: No filling defects identified to suggest pulmonary embolic disease. There is groundglass opacity in b oth lungs with small effusions. Differential diagnosis includes edema or other pneumonitis. No acute findings in the upper abdomen. CONCLUSION: 1. Negative for pulmonary embolism. 2. Groundglass opacity in the lungs especially basilar with small effusions. Differential diagnosis i ncludes edema and some form of pneumonitis. Mitesh Tran MD on February 22, 2017 at 21:27 Board Certified Radiologist. This report was verified electronically.
[2017-02-22] MEDS ORDERED: hydrALAZINE HCL 20 MG/ML VIAL IV SCH (21:45)
[2017-02-22] MEDS ORDERED: hydrALAZINE HCL 20 MG/ML VIAL IV PRN (21:46)
--- NOTE | 2017-02-22 22:52 | RADRPT ---
EXAM DATE/TIME: 02/22/2017 22:26 [facility] COMPARISON: No previous studies available for comparison. INDICATIONS : Shortness of breath. MEDICAL HISTORY : Hypertension. SURGICAL HISTORY : None. ENCOUNTER: Initial ACUITY: 1 day PAIN SCORE: 0/10 LOCATION: Bilateral chest FINDINGS: A single view of the chest demonstrates bilateral mostly basilar airspace disease. No significant eff usion. No pneumothorax. Heart size mildly enlarged. CONCLUSION: 1. Mild basal airspace disease. Mild cardiomegaly. No effusion or pneumothorax. Mitesh Tran MD on February 22, 2017 at 22:49 Board Certified Radiologist. This report was verified electronically.
--- NOTE | 2017-02-22 23:00 | PD ---
History of Present Illness Date Seen: Feb 22, 2017 Time Seen: 22:45 History of Present Illness Called to see patient by charge nurse secondary to status change Pt shivering. states headache 12/25, previously 10 feels some shortness of breath Pt continues to have elevated blood pressures: 160s-180s/70s-90s O2 sats currently 92% on room air + cough (new) gen: shivering, alert and oriented heent: eyelids swollen CV: reg rate and rhythm lungs: crackles in RLL ext: SCDs on LE a/p: 31 y/o POD 10 s/p repeat with acute onset hypertensive emergency, headache now with SOB, decreased oxygen sat CT-A neg for PE but ground glass opacities noted, suspect pulmonary edema CXR, EKG, ABG ordered transfer to critical care for telemetry, critical care consult d/w Dionicio Looney MD Feb 22, 2017 23:00
[2017-02-22 23:17] LABS: BLOOD GAS BASE EXCESS 0.2 mmol/L (-2-2); BLOOD GAS CARBOXYHEMOGLOBIN 1.7 % (0-4); BLOOD GAS HCO3 24 mmol/L (22-26); BLOOD GAS O2 HGB SATURATION 97 % (90-100); BLOOD GAS OXYGEN CONTENT 12.4 Vol % (12.0-20.0); BLOOD GAS PCO2 34 mmHg (38-42); BLOOD GAS PO2 285 mmHg (61-120); BLOOD GAS TOTAL HGB 8.6 G/DL (12.0-16.0); CRITICAL VALUE NO; LITER FLOW 15 L/M; TEMP CORR TO 98.6
[2017-02-22 23:18] LABS: DRAW SITE LT RADIAL; NUMBER OF ARTERIAL PUNCTURES 2; STAT YES
[2017-02-23] VITALS (14 sets, daily range): BP systolic 129–183; BP diastolic 62–95; PULSE 76–102; RESP 18–22; TEMP 98.2; O2SAT 98–99
[2017-02-23] MEDS ORDERED: CHLORHEXIDINE GLUCONATE 2 % 1 PACK (2 CLOTHS)(extra cloths) TOPICAL PRN (00:30)
[2017-02-23] MEDS ORDERED: hydrALAZINE HCL 20 MG/ML VIAL IV PUSH ONE (01:15)
[2017-02-23] MEDS ORDERED: LABETALOL HCL 100 MG/20 ML VIAL IV PUSH ONE (01:15)
[2017-02-23] MEDS ORDERED: LABETALOL HCL 100 MG/20 ML VIAL IV PUSH PRN (01:15)
[2017-02-23] MEDS ORDERED: niCARdipine INJ 25 MG in SODIUM CHLOR 0.9% 250 ML INJ 250 ML IV SCH (01:15)
[2017-02-23] MEDS ORDERED: NITROGLYCERIN 2% OINT 1 GM PACKET TOPICAL PRN (01:15)
--- NOTE | 2017-02-23 01:35 | PD.CONS ---
[facility] Service Critical Care Medicine Consult Requested By Dr. Gmoez Reason for Consult Management of hypertension Primary Care Physician No Primary Care Physician History of Present Illness 31-year-old AA female. Date of admission 02/22/2017. Date of consultation 2016. Past medical history includes elevated BMI. She has a history of hypertension for last delivery. She presents to [facility] with acute onset of headache/throbbing 1010 since 5 AM on 02/22. She attempted to take ibuprofen with no relief. She called her [employer] physician who recommended evaluations in the ED. Patient was noted to have an elevated systolic blood pressure. CT pulmonary angiogram revealed groundglass opacities without pulmonary embolism. Liver function tests within normal limits. Trace protein in urine. Platelets within normal limits. She had a microcytic anemia. Elevated uric acid 8.7. Patient denied abdominal pain. Patient had some chest pain which is since resolved. She received 60 mg labetalol IV, 400 mg by mouth labetalol, clonidine 0.1 mg and hydralazine 10 mg. She is transferred to the ICU for further evaluation treatment from [employer]. EKG revealed normal sinus rhythm of 83 with normal MS, QRS and QT intervals. Review of Systems Constitutional: COMPLAINS OF: Weight loss, DENIES: Fatigue, Fever, Weight gain Endocrine: COMPLAINS OF: Abnorml menstrual pattern Eyes: DENIES: Blurred vision, Double Vision Ears, nose, mouth, throat: DENIES: Hearing loss, Ear Pain, Running Nose Respiratory: DENIES: Shortness of breath Cardiovascular: COMPLAINS OF: Chest pain Gastrointestinal: DENIES: Abdominal pain, Nausea, Vomiting Musculoskeletal: COMPLAINS OF: Joint Swelling, DENIES: Joint pain Integumentary: DENIES: Abnormal pigmentation Hematologic/lymphatic: DENIES: Bruising Immunologic/allergic: DENIES: Eczema Neurologic: COMPLAINS OF: Headache, DENIES: Abnormal gait, Localized weakness Psychiatric: DENIES: Anxiety Past Family Social History Allergies: Coded Allergies: No Known Allergies (Verified , 02/11/17) Past Medical History Elevated BMI History of hypertension Past Surgical History Ariton teeth/root canal History of 3 was recent 01/31 Reported Medications Ibuprofen 800 mg by mouth every 8 hours [place] 5/325 as needed Active Ordered Medications Reviewed in EMR Family History Mother and father with hypertension Social History Denies tobacco, alcohol or IV drug use Physical Exam Vital Signs Vital Signs Date Time Temp Pulse Resp B/P Pulse Ox O2 Delivery O2 Flow Rate FiO2 02/22/17 23:05 80 100 02/22/17 23:03 82 18 178/89 02/22/17 23:03 20 02/22/17 23:00 79 100 02/22/17 22:55 81 100 02/22/17 22:45 84 100 02/22/17 22:40 100 Non-Rebreather 15.00 02/22/17 22:40 100 02/22/17 22:35 100 89 02/22/17 22:33 90 02/22/17 22:30 109 80 02/22/17 22:29 91 174/69 02/22/17 22:28 99.7 02/22/17 22:25 96 74 02/22/17 22:25 101 02/22/17 22:19 22 02/22/17 22:18 101 181/95 02/22/17 22:10 107 02/22/17 22:05 113 93 02/22/17 22:04 98.9 02/22/17 22:00 115 90 02/22/17 21:55 104 94 02/22/17 21:50 85 99 02/22/17 21:45 77 100 02/22/17 21:40 77 100 02/22/17 21:35 74 02/22/17 21:35 72 186/99 100 02/22/17 20:41 76 157/99 02/22/17 20:40 75 99 02/22/17 20:35 71 97 02/22/17 20:31 75 185/96 02/22/17 20:30 72 98 02/22/17 20:26 73 179/84 02/22/17 20:25 96 02/22/17 20:25 74 02/22/17 20:20 71 96 02/22/17 20:15 72 96 02/22/17 20:10 79 96 02/22/17 20:05 71 97 02/22/17 20:01 67 191/98 02/22/17 20:00 73 95 02/22/17 19:55 72 92 02/22/17 19:50 74 93 02/22/17 19:45 72 99 02/22/17 19:40 73 96 02/22/17 19:35 75 92 8/8/17 19:31 72 178/96 8/17 19:30 74 97 8/17 19:25 72 95 8/17 19:21 71 176/82 817 19:20 72 02/22/17 19:20 95 8/17 19:16 71 162/82 817 19:15 73 96 817 19:11 77 162/73 817 19:10 78 94 817 19:06 77 163/85 8/17 19:05 83 92 8/17 19:03 75 175/89 8/17 19:00 74 93 8/17 18:55 72 94 17 18:50 73 93 17 18:46 73 171/77 17 18:45 72 96 17 18:41 71 166/82 17 18:40 72 94 17 18:36 72 176/79 17 18:35 71 94 17 18:34 71 165/82 17 18:33 22 17 18:30 70 96 02/22/17 18:25 69 95 17 18:20 69 97 17 18:15 70 94 17 18:10 70 93 17 18:05 69 93 17 18:03 67 160/76 817 18:02 24 17 17:45 70 97 17 17:41 66 169/89 17 17:36 66 179/87 8/17 17:35 68 100 8/17 17:34 66 181/90 8/17 17:30 69 100 8/17 17:26 69 186/87 817 17:25 69 100 8/17 17:20 66 187/92 100 8/17 17:20 67 17 17:15 68 100 17 17:10 71 100 17 17:06 73 183/94 817 17:05 67 100 817 17:02 69 186/94 8/8/17 17:02 24 02/22/17 17:00 72 99 02/22/17 16:58 71 185/97 02/22/17 16:56 66 190/100 02/22/17 16:55 64 100 02/22/17 16:40 69 93 02/22/17 16:31 72 174/94 02/22/17 16:30 70 97 02/22/17 16:26 64 182/97 02/22/17 16:25 69 96 Physical Exam GENERAL: 31 yoAA female, resting in bed in no acute distress SKIN: Warm and dry. HEAD: Atraumatic. Normocephalic. EYES: Pupils equal and round 2 mm bilaterally and reactive. No scleral icterus. No injection or drainage. ENT: No nasal bleeding or discharge. Mucous membranes pink and moist. NECK: Trachea midline. No JVD. CARDIOVASCULAR: Regular rate and rhythm. S1, S2 no S4. Soft flow murmur RESPIRATORY: No accessory muscle use. Clear to auscultation. Breath sounds equal bilaterally. GASTROINTESTINAL: Abdomen soft, non-tender, obese. No guarding or rigidity. LTCS clean dry and intact. MUSCULOSKELETAL: Extremities trace to 1+ left lower extremity. Right lower extremity within normal limits. NEUROLOGICAL: Awake and alert. No obvious cranial nerve deficits. Motor grossly within normal limits. Five out of 5 muscle strength in the arms and legs. Normal speech. PSYCHIATRIC: Appropriate mood and affect; insight and judgment normal. Laboratory Laboratory Tests Test 02/22/17 02/22/17 16:45 23:00 White Blood Count 6.5 Red Blood Count 3.81 Hemoglobin 8.7 Hematocrit 26.7 Mean Corpuscular Volume 70.0 Mean Corpuscular Hemoglobin 22.9 Mean Corpuscular Hemoglobin 32.7 Concent Red Cell Distribution Width 17.5 Platelet Count 245 Mean Platelet Volume 8.8 Urine Color YELLOW Urine Turbidity HAZY Urine pH 5.5 Urine Specific [place] 1.021 Urine Protein TRACE Urine Glucose (UA) NEG Urine Ketones NEG Urine Occult Blood SMALL Urine Nitrite NEG Urine Bilirubin NEG Urine Urobilinogen LESS THAN 2.0 Urine Leukocyte Esterase MOD Urine RBC 1 Urine WBC 7 Urine Squamous Epithelial 1 Cells Urine Bacteria RARE Urine Hyaline Casts 2 Urine Mucus FEW Microscopic Urinalysis Comment CULT NOT INDICATED Urine Random Creatinine 150 Urine Random Total Protein 23 Urine Protein/Creatinine Ratio 0.15 Sodium Level 143 Potassium Level 3.9 Chloride Level 107 Carbon Dioxide Level 29.7 Anion Gap 6 Blood Urea Nitrogen 13 Creatinine 0.89 Estimat Glomerular Filtration 90 Rate Random Glucose 73 Uric Acid 8.7 Calcium Level 8.5 Total Bilirubin 0.2 Aspartate Amino Transf 21 (AST/SGOT) Alanine Aminotransferase 44 (ALT/SGPT) Alkaline Phosphatase 87 Total Protein 6.6 Albumin 3.1 Blood Gas Puncture Site LT RADIAL Blood Gas Patient Temperature 98.6 Blood Gas HCO3 24 Blood Gas Base Excess 0.2 Blood Gas Oxygen Saturation 97 Arterial Blood pH 7.46 Arterial Blood Partial 34 Pressure CO2 Arterial Blood Partial 285 Pressure O2 Arterial Blood Oxygen Content 12.4 Arterial Blood 1.7 Carboxyhemoglobin Arterial Blood Methemoglobin 1.0 Blood Gas Hemoglobin 8.6 Oxygen Delivery Device Non-Rebreathing Mask Blood Gas Liter Flow 15 Result Diagram: 02/22/17 1645 02/22/17 1645 Imaging Last Impressions Chest X-Ray 02/22/17 0000 Signed Impressions: Service Date/Time: Wednesday, February 22, 2017 22:26 - CONCLUSION: 1. Mild basal airspace disease. Mild cardiomegaly. No effusion or pneumothorax. Mitesh Tran MD CT Angiography 02/22/17 0000 Signed Impressions: Service Date/Time: Wednesday, February 22, 2017 20:50 - CONCLUSION: 1. Negative for pulmonary embolism. 2. Groundglass opacity in the lungs especially basilar with small effusions. Differential diagnosis includes edema and some form of pneumonitis. Mitesh Tran MD Assessment and Plan Assessment and Plan Neuro/Psych: Headache Will discontinue ibuprofen in light of hypertension Acetaminophen for fever/pain 1-10 As needed morphine for breakthrough pain CV: hypertension EKG revealed no acute ST elevation or depressions. Receive labetalol 60 mg IV, 4 mg by mouth, clonidine 0.1 mg of hydralazine 10 mg IV 1 prior to transfer to icu. 1 dose hydrochlorothiazide 25 mg now. Currently on labetalol 200 mg by mouth 3 times a day, clonidine 0.1 mg at night. As needed labetalol, hydralazine, Nitropaste and Cardene drip written. Currently on LR at 30 cc an hour Of note patient bottle feeding only. No breast-feeding Resp: CT pulmonary angiogram revealed groundglass opacities, slight pulmonary edema. No pulmonary embolism. Nasal cannula to maintain saturations greater than equal to 92% Incentive spirometry while awake GI: Hypoalbuminemia Clear liquid diet initiated. Advance as tolerated : No indication for Naav catheter Endo: Elevated uric acid Likely will follow trends with this. Would not initiate allopurinol at this time. Renal: Monitor urine output Accurate I's and O's Follow-up creatinine in a.m. Heme: Microcytic anemia Follow-up CBC in a.m. ID: Monitor for infection with fevers and leukocytosis MSK: PT evaluate and treat. Doppler ultrasound left lower extremity pending FEN: Replace electrolytes as clinically indicated Access - Utilize peripheral IV. Central line if indicated Prophylaxis - GI - not indicated - DVT - SCDs. Level III consult Code Status Full code Discussed Condition With Dr. Terrazas and patient. Care plan discussed and all questions answered. Ran Becerra MD Feb 23, 2017 01:34 Carol Goldman MD Feb 23, 2017 13:41
[2017-02-23] MEDS ORDERED: HYDROCHLOROTHIAZIDE 25 MG TAB PO ONE (01:45)
[2017-02-23] MEDS: CHLORHEXIDINE GLUCONATE 2 % 1 PACK (2 CLOTHS)(taper/protocol) TOPICAL SCH (04:00)
[2017-02-23] MEDS: LABETALOL HCL 200 MG TAB PO SCH ×2 (06:00→13:02)
[2017-02-23] MEDS ORDERED: LABETALOL HCL 300 MG TAB PO SCH ×2 (06:00)
[2017-02-23 06:26] LABS: HEMATOCRIT 26.8 % (35.0-46.0); MEAN CELL VOLUME 68.9 FL (80.0-100.0); MEAN CORPUSCULAR HGB CONC 31.9 % (32.0-36.0); PLATELET COUNT 246 TH/MM3 (150-450); RED CELL DISTRIBUTION WIDTH 17.3 % (11.6-17.2); REVIEW FLAG FINAL
[2017-02-23 06:50] LABS: BICARBONATE 25.3 MEQ/L (21.0-32.0); MAGNESIUM 2.1 MG/DL (1.5-2.5); POTASSIUM 3.7 MEQ/L (3.5-5.1)
[2017-02-23] MEDS ORDERED: LABETALOL HCL 200 MG TAB PO ONE (08:15)
--- NOTE | 2017-02-23 08:21 | EKG ---
Date Performed: 02/22/2017 Time Performed: 22:44:01 PTAGE: 31 years EKG: Sinus rhythm NORMAL ECG NO PREVIOUS TRACING DOCTOR: Ramses Lopez Interpretating Date/Time 02/23/2017 08:20:47
[2017-02-23] MEDS: SODIUM CHLORIDE 0.9% FLUSH 5 ML FLUSH IV SCH ×2 (09:00→21:00)
[2017-02-23] MEDS ORDERED: cloNIDine HCL 0.1 MG TAB PO SCH ×2 (09:00→21:00)
--- NOTE | 2017-02-23 10:36 | RADRPT ---
EXAM DATE/TIME: 02/23/2017 10:07 [facility] COMPARISON: No previous studies available for comparison. INDICATIONS : Left leg edema. MEDICAL HISTORY : GERD. SURGICAL HISTORY : section. Root canals. Tiro teeth. ENCOUNTER: Initial ACUITY: 1 day PAIN SCORE: 0/10 LOCATION: Left leg. TECHNIQUE: Venous ultrasound of the leg was performed from the inguinal ligament to the proximal calf. Real-liza e, color Doppler and spectral tracing, compression and augmentation techniques were used. FINDINGS: There is normal compressibility of the deep venous system from the inguinal region to the proximal ca lf. No echogenic clot is seen in the lumen of the common femoral, femoral, popliteal, and posterior tibial veins. There is a normal response of the venous system to proximal and distal augmentation an d respiration. CONCLUSION: Negative for deep venous thrombosis. Lloyd Encarnacion MD FACR on February 23, 2017 at 10:33 Board Certified Radiologist. This report was verified electronically.
[2017-02-23] MEDS: ACETAMINOPHEN 325 MG TAB PO PRN (13:01)
--- NOTE | 2017-02-23 13:38 | HHI.CCPN ---
Subjective Remarks/Hospital Course 31-year-old AA female. Date of admission 02/22/2017. Date of consultation 2016. Past medical history includes elevated BMI. She has a history of hypertension for last delivery. She presents to [facility] with acute onset of headache/throbbing 1010 since 5 AM on 02/22. She attempted to take ibuprofen with no relief. She called her [employer] physician who recommended evaluations in the ED. Patient was noted to have an elevated systolic blood pressure. CT pulmonary angiogram revealed groundglass opacities without pulmonary embolism. Liver function tests within normal limits. Trace protein in urine. Platelets within normal limits. She had a microcytic anemia. Elevated uric acid 8.7. Patient denied abdominal pain. Patient had some chest pain which is since resolved. She received 60 mg labetalol IV, 400 mg by mouth labetalol, clonidine 0.1 mg and hydralazine 10 mg. She is transferred to the ICU for further evaluation treatment from [employer]. Subjective: 02/23: 1335- Patient hypertension improved, labetalol dosage increase 400 twice a day. Patient's diet has been advanced to regular diet tolerating well. TTE just performed will follow-up results. Receiving Tylenol for headache relief. Objective Vital Signs Date Time Temp Pulse Resp B/P Pulse Ox O2 Delivery O2 Flow Rate FiO2 02/23/17 12:00 76 02/23/17 10:00 145/79 02/23/17 08:00 98.2 20 99 02/22/17 22:40 Non-Rebreather 15.00 Result Diagram: 02/23/17 0615 02/23/17 0615 Other Results Laboratory Tests Test 02/22/17 23:00 Blood Gas Puncture Site LT RADIAL Blood Gas Patient Temperature 98.6 Blood Gas HCO3 24 mmol/L (22-26) Blood Gas Base Excess 0.2 mmol/L (-2-2) Blood Gas Oxygen Saturation 97 % (90-100) Arterial Blood pH 7.46 (7.380-7.420) Arterial Blood Partial 34 mmHg (38-42) Pressure CO2 Arterial Blood Partial 285 mmHg Pressure O2 (61-120) Arterial Blood Oxygen Content 12.4 Vol % (12.0-20.0) Arterial Blood 1.7 % (0-4) Carboxyhemoglobin Arterial Blood Methemoglobin 1.0 % (0-2) Blood Gas Hemoglobin 8.6 G/DL (12.0-16.0) Oxygen Delivery Device Non-Rebreathing Mask Blood Gas Liter Flow 15 L/M Imaging Last Impressions Chest X-Ray 02/22/17 Signed Impressions: Service Date/Time: Wednesday, February 22, 2017 22:26 - CONCLUSION: 1. Mild basal airspace disease. Mild cardiomegaly. No effusion or pneumothorax. Mitesh Tran MD CT Angiography 02/22/17 Signed Impressions: Service Date/Time: Wednesday, February 22, 2017 20:50 - CONCLUSION: 1. Negative for pulmonary embolism. 2. Groundglass opacity in the lungs especially basilar with small effusions. Differential diagnosis includes edema and some form of pneumonitis. Mitesh Tran MD Objective Remarks GENERAL: 31 yoAA female, resting in bed in no acute distress SKIN: Warm and dry. HEAD: Atraumatic. Normocephalic. EYES: Pupils equal and round 2 mm bilaterally and reactive. No scleral icterus. No injection or drainage. ENT: No nasal bleeding or discharge. Mucous membranes pink and moist. NECK: Trachea midline. No JVD. CARDIOVASCULAR: Regular rate and rhythm. S1, S2 no S4. Soft flow murmur RESPIRATORY: No accessory muscle use. Clear to auscultation. Breath sounds equal bilaterally. GASTROINTESTINAL: Abdomen soft, non-tender, obese. No guarding or rigidity. LTCS clean dry and intact. MUSCULOSKELETAL: Extremities trace to 1+ left lower extremity. Right lower extremity within normal limits. NEUROLOGICAL: Awake and alert. No obvious cranial nerve deficits. Motor grossly within normal limits. Five out of 5 muscle strength in the arms and legs. Normal speech. PSYCHIATRIC: Appropriate mood and affect; insight and judgment normal. A/P Assessment and Plan Neuro/Psych: Headache Will discontinue ibuprofen in light of hypertension Acetaminophen for fever/pain 1-10 As needed morphine for breakthrough pain CV: hypertension EKG revealed no acute ST elevation or depressions. Receive labetalol 60 mg IV, 4 mg by mouth, clonidine 0.1 mg of hydralazine 10 mg IV 1 prior to transfer to icu. 1 dose hydrochlorothiazide 25 mg now. Labetalol 400 mg BID, clonidine 0.1 mg at night. As needed labetalol, hydralazine, Nitropaste and Cardene drip written. Currently on LR at 30 cc an hour Of note patient bottle feeding only. No breast-feeding Resp: CT pulmonary angiogram revealed groundglass opacities, slight pulmonary edema. No pulmonary embolism. Nasal cannula to maintain saturations greater than equal to 92% Incentive spirometry while awake GI: Hypoalbuminemia Regular diet. Advance as tolerated : No indication for Nava catheter Endo: Elevated uric acid Likely will follow trends with this. Would not initiate allopurinol at this time. Renal: Monitor urine output Accurate I's and O's Heme: Microcytic anemia Follow-up CBC in a.m. ID: Monitor for infection with fevers and leukocytosis MSK: PT evaluate and treat. Doppler ultrasound left lower extremity pending FEN: Replace electrolytes as clinically indicated Access - Utilize peripheral IV. Central line if indicated Prophylaxis - GI - not indicated - DVT - SCDs. Level 2 . [facility] transfer [facility]. Thank you for participation in the care of this patient. Critical care medicine will sign off. Physician Carol Olivarez MD Feb 23, 2017 13:37
[2017-02-23] MEDS: hydrALAZINE HCL 20 MG/ML VIAL IV PUSH PRN (13:48)
[2017-02-23] MEDS: LACTATED RINGER'S 1000 ML INJ 1,000 ML IV SCH (14:18)
--- NOTE | 2017-02-23 17:22 | ECHRPT ---
Indication: HYPERTENSIVE HEART DIS CONCLUSIONS Normal left ventricular size. Wall thickness is normal. The left ventricular systolic function is normal with EF 60%. No regional wall motion abnormalities are present. The left atrial size is [id number] dilated. The right atrial size is mildly dilated. [id number] mitral valve regurgitation. There is mild tricuspid valve regurgitation. There is estimated mild pulmonary hypertension present (range 40-50 mmHg). BP: 178 / 89 HR: 82 Rhythm: Sinus MEASUREMENTS (Male / Female) Normal Values Technical Quality:Good 2D ECHO LV Diastolic Diameter PLAX 5.4 cm 4.2 - 5.9 / 3.9 - 5.3 cm LV Systolic Diameter PLAX 3.4 cm IVS Diastolic Thickness 0.9 cm 0.6 - 1.0 / 0.6 - 0.9 cm LVPW Diastolic Thickness 0.9 cm 0.6 - 1.0 / 0.6 - 0.9 cm LV Relative Wall Thickness 0.4 LVOT Diameter 2.0 cm Aortic Root Diameter 2.8 cm LA Systolic Diameter LX 3.4 cm 3.0 - 4.0 / 2.7 - 3.8 cm M-MODE AV Cusp Separation MM 2.2 cm DOPPLER AV Peak Velocity 154.0 cm/s AV Peak Gradient 9.5 mmHg AV Mean Gradient 6.0 mmHg AV Velocity Time Integral 30.6 cm LVOT Peak Velocity 111.0 cm/s LVOT Peak Gradient 4.9 mmHg LVOT Velocity Time Integral 24.4 cm LVOT Cardiac Index 2336.5 cm/minm AV Area Cont Eq vti 2.5 cm AV Area Cont Eq pk 2.3 cm Mitral E Point Velocity 139.0 cm/s Mitral A Point Velocity 66.0 cm/s Mitral E to A Ratio 2.1 LV E' Lateral Velocity 10.1 cm/s Mitral E to LV E' Lateral Ratio 13.8 LV E' Septal Velocity 10.3 cm/s Mitral E to LV E' Septal Ratio 13.5 TR Peak Velocity 312.0 cm/s TR Peak Gradient 38.9 mmHg PV Peak Velocity 64.7 cm/s PV Peak Gradient 1.7 mmHg FINDINGS LEFT VENTRICLE Normal left ventricular size. Wall thickness is normal. The left ventricular systolic function is grossly normal on limited imaging. EF 60%. No regional wall motion abnormalities are present. Left ventricular diastolic function parameters are normal. RIGHT VENTRICLE Normal right ventricular size and systolic function. LEFT ATRIUM The left atrial size is osry-[id number]-nsudvaihbw dilated. RIGHT ATRIUM The right atrial size is mildly dilated. ATRIAL SEPTUM The interatrial septum not well visualized. AORTA The aortic root and proximal ascending aorta are normal in size on limited imaging. MITRAL VALVE Structurally normal mitral valve. [id number] mitral valve regurgitation. AORTIC VALVE Trileaflet aortic valve. No aortic valve regurgitation. No aortic valve stenosis. TRICUSPID VALVE Structurally normal tricuspid valve. There is mild tricuspid valve regurgitation. There is estimated mild pulmonary hypertension present (range 40-50 mmHg). PULMONARY VALVE No pulmonary valve regurgitation or stenosis. VESSELS The inferior vena cava (IVC) is normal in size. There is less than 50% respiratory change in dimension of the inferior vena cava (abnormal). PERICARDIUM No pericardial effusion. Keila Luna MD, FACC (Electronically Signed) Final Date:23 February 2017 17:21
[2017-02-23] MEDS ORDERED: ZOLPIDEM TARTRATE 5 MG TAB PO PRN (19:00)
[2017-02-23] MEDS ORDERED: LABETALOL HCL 200 MG TAB PO SCH (21:00)
[2017-02-23] MEDS: LABETALOL HCL 300 MG TAB PO SCH (21:29)
--- NOTE | 2017-02-23 21:41 | HHI.PR ---
Subjective Remarks Feeling much better, I miss my baby and that makes me sad. No sadness before the hospitalization No SOB, CP, or pressure. Tolerating diet well and pain is well controlled. I want to go home Objective Vital Signs Date Time Temp Pulse Resp B/P Pulse Ox O2 Delivery O2 Flow Rate FiO2 02/23/17 18:00 87 02/23/17 16:00 87 02/23/17 14:00 87 02/23/17 12:00 76 02/23/17 10:00 88 145/79 02/23/17 10:00 76 02/23/17 09:00 129/62 02/23/17 08:30 183/91 02/23/17 08:00 98.2 82 20 99 02/23/17 08:00 76 02/23/17 08:00 98.2 90 18 177/93 99 02/23/17 06:00 83 02/23/17 04:00 88 02/23/17 02:00 102 02/23/17 00:00 87 02/22/17 23:05 80 100 02/22/17 23:03 82 18 178/89 02/22/17 23:03 20 02/22/17 23:00 79 100 02/22/17 22:55 81 100 02/22/17 22:45 84 100 02/22/17 22:40 100 Non-Rebreather 15.00 02/22/17 22:40 100 02/22/17 22:35 100 89 02/22/17 22:33 90 02/22/17 22:30 109 80 02/22/17 22:29 91 174/69 02/22/17 22:28 99.7 02/22/17 22:25 96 74 02/22/17 22:25 101 02/22/17 22:19 22 02/22/17 22:18 101 181/95 02/22/17 22:10 107 02/22/17 22:05 113 93 02/22/17 22:04 98.9 02/22/17 22:00 115 90 02/22/17 21:55 104 94 02/22/17 21:50 85 99 02/22/17 21:45 77 100 02/22/17 21:40 77 100 02/22/17 21:35 74 02/22/17 21:35 72 186/99 100 I/O 02/22/17 02/22/17 02/22/17 02/23/17 02/23/17 02/23/17 06:59 14:59 22:59 06:59 14:59 22:59 Intake Total 487 ml 570 ml Output Total 700 ml 1050 ml Balance -213 ml -480 ml Intake Oral 240 ml 320 ml IV Total 247 ml 250 ml Output Urine Total 700 ml 1050 ml # Sanitary Pads 1 Pads 1 Pads 1 Pads 1 Pads 1 Pads 1 Pads 1 Pads Result Diagram: 02/23/17 0615 02/23/17 0615 Imaging Last 48 hours Impressions Lower Extremity Ultrasound 02/23/17 0000 Signed Impressions: Service Date/Time: Thursday, February 23, 2017 10:07 - CONCLUSION: Negative for deep venous thrombosis. Lloyd Encarnacion MD FACR Chest X-Ray 02/22/17 0000 Signed Impressions: Service Date/Time: Wednesday, February 22, 2017 22:26 - CONCLUSION: 1. Mild basal airspace disease. Mild cardiomegaly. No effusion or pneumothorax. Mitesh Tran MD CT Angiography 02/22/17 0000 Signed Impressions: Service Date/Time: Wednesday, February 22, 2017 20:50 - CONCLUSION: 1. Negative for pulmonary embolism. 2. Groundglass opacity in the lungs especially basilar with small effusions. Differential diagnosis includes edema and some form of pneumonitis. Mitesh Tran MD Other Results Chest is clear CV RRR Abd soft and nontender. Ext Small LE swelling no calf tenderness or swelling. Assessment and Plan Assessment and Plan 1. pre eclampsia..Will increase her labetalol to 600mg bid to better control her BP. She did this last and was quickly weened off. Hopefully she will be able to go home tomorrow, Reviewed all previous notes and labs. Appreciate all the help. 2. Pulmonary edema resolving nicely. 3. Severe anemia chronic will give a dose ov venofer before discharge home. 4. Elevated uric acid.. this is secondary to the pre eclampsia. Will follow up with a repeat uric acid and cbc in a couple weeks. Discussed Condition With Jeremiah Discharge Planning Hopefully tomorrow. David Feng MD Feb 23, 2017 21:41
[2017-02-23] MEDS ORDERED: IRON SUCROSE INJ 100 MG in SODIUM CHLORIDE 0.9% INJ 100 ML IV ONE (22:45)
[2017-02-24] VITALS: BP 144/84; PULSE 91; RESP 20; TEMP 98.8; O2SAT 95
[2017-02-24] MEDS: CHLORHEXIDINE GLUCONATE 2 % 1 PACK (2 CLOTHS)(taper/protocol) TOPICAL SCH (01:28)
[2017-02-24 04:00] VITALS: BP 172/84; PULSE 93; RESP 22; TEMP 99.7; O2SAT 97
[2017-02-24] MEDS: ACETAMINOPHEN 325 MG TAB PO PRN ×2 (04:06→09:06)
[2017-02-24] MEDS: hydrALAZINE HCL 20 MG/ML VIAL IV PUSH PRN (04:24)
[2017-02-24 08:05] VITALS: BP 156/81; PULSE 91; RESP 18; TEMP 99.2; O2SAT 95
[2017-02-24] MEDS: SODIUM CHLORIDE 0.9% FLUSH 5 ML FLUSH IV SCH (09:00)
[2017-02-24] MEDS: LABETALOL HCL 300 MG TAB PO SCH (09:05)
[2017-02-24 09:19] LABS: HEMATOCRIT 28.4 % (35.0-46.0); MEAN CELL VOLUME 70.3 FL (80.0-100.0); MEAN CORPUSCULAR HGB CONC 31.2 % (32.0-36.0); PLATELET COUNT 270 TH/MM3 (150-450); RED BLOOD COUNT 4.04 MIL/MM3 (4.00-5.30); RED CELL DISTRIBUTION WIDTH 17.7 % (11.6-17.2); REVIEW FLAG FINAL; WHITE BLOOD COUNT 8.2 TH/MM3 (4.0-11.0)
[2017-02-24 09:40] LABS: ALT (GPT) 44 U/L (10-53); ANION GAP 8 MEQ/L (5-15); AST (GOT) 16 U/L (15-37); BICARBONATE 27.6 MEQ/L (21.0-32.0); BLOOD UREA NITROGEN 8 MG/DL (7-18); CHLORIDE 108 MEQ/L (98-107); GLOMERULAR FILTRATION RATE 87 ML/MIN (>89); MAGNESIUM 2.4 MG/DL (1.5-2.5); POTASSIUM 3.7 MEQ/L (3.5-5.1); SODIUM (NA) 144 MEQ/L (136-145)
[2017-02-24 09:43] LABS: ALKALINE PHOSPHATASE 80 U/L (45-117); CREATINE KINASE 87 U/L (26-192); TOTAL BILIRUBIN ADULT 0.3 MG/DL (0.2-1.0)
[2017-02-24 09:46] LABS: APTT (PATIENT) 28.7 SEC (24.3-30.1); INTERNATIONAL NORMALIZED RATIO 1.1 RATIO; PROTHROMBIN TIME - PATIENT 12.6 SEC (9.8-11.6)
--- NOTE | 2017-02-24 09:49 | HHI.PR ---
Subjective Remarks PT FEELING BETTER ANXIOUS TO GO HOME DENIES SOB Objective Vital Signs Date Time Temp Pulse Resp B/P Pulse Ox O2 Delivery O2 Flow Rate FiO2 02/24/17 09:20 Room Air 02/24/17 08:05 99.2 91 18 156/81 95 02/24/17 04:00 99.7 93 22 172/84 97 02/24/17 00:01 Room Air 02/24/17 00:00 98.8 91 20 144/84 95 02/23/17 22:15 87 02/23/17 20:00 Room Air 02/23/17 19:05 98.2 84 22 143/95 98 02/23/17 18:00 87 02/23/17 16:00 87 02/23/17 14:00 87 02/23/17 12:00 76 02/23/17 10:00 88 145/79 02/23/17 10:00 76 I/O 02/23/17 02/23/17 02/23/17 02/24/17 02/24/17 02/24/17 07:00 15:00 23:00 07:00 15:00 23:00 Intake Total 487 ml 570 ml 484 ml 480 ml Output Total 700 ml 1050 ml Balance -213 ml -480 ml 484 ml 480 ml Intake Oral 240 ml 320 ml 480 ml 480 ml IV Total 247 ml 250 ml 4 ml Output Urine Total 700 ml 1050 ml # Voids 1 3 # Sanitary Pads 1 Pads 1 Pads 1 Pads 2 Pads 1 Pads 1 Pads 1 Pads 1 Pads 1 Pads Result Diagram: 02/24/17 0853 02/23/17 0615 Objective Remarks LUNGS CLEAR, NO SOB HR REGULAR RHYTHM + BS NO SWELLING TO LOWER EXTREMITIES, COME CRAMPING IN LEFT CALF (DOPPLER NEG FOR DVT) Assessment and Plan Problem List: (1) Pre-eclampsia in period Status: Acute Plan: MONITOR LABS AND BP AN OUTPATIENT AND INCREASE LABETALOL Assessment and Plan PT'S BP HAVE IMPROVED WITH INCREASE IN LABETALOL PT HAD ONE DOSE OF VENOFER WE WILL F/C WITH LABS AN BP CHECKS OUT PATIENT Discharge Planning DC HOME TODAY WITH F/U IN OFFICE TUESDAY OR TUESDAY Jayda Ybarra Feb 24, 2017 09:49
--- NOTE | 2017-02-24 09:59 | HHI.DCPOC ---
Discharge Care Plan Diagnosis: (1) Pre-eclampsia in period (2) Anemia Your Health Problems Are: delivery (C) Additional Problems IF YOU HAVE SHORTNESS OF BREATH, BLURRED VISION, SWELLING OF FACE AND HANDS, RETURN TO HOSPITAL Report Symptoms to Your Doctor -Temperature above 100.5 degrees -Redness, of incision or excessive or foul smelling drainage -Unusual pain or calf pain -Increased vaginal bleeding -Painful or difficulty urinating -Feelings of extreme sadness or anxiety after 2 weeks Goals to Promote Your Health * To prevent worsening of your condition and complications * To maintain your health at the optimal level Directions to Meet Your Goals Take your medications as prescribed Follow your dietary instruction Follow activity as directed Ensure plenty of rest for recovery Drink fluids for hydration Keep your appointments as scheduled Take your immunizations and boosters as scheduled If your symptoms worsen call your PCP, if no PCP go to Urgent Care Center or Emergency Room Smoking is Dangerous to Your Health. Avoid second hand smoke Call the 24-hour crisis hotline for domestic abuse at Jayda Ybarra Feb 24, 2017 09:59
[2017-02-24] MEDS ORDERED: LABE300T PO (10:05)
[2017-02-24 12:05] VITALS: BP 126/65; PULSE 91; RESP 18; TEMP 99; O2SAT 92
== END 2017-02-24 12:25 | disposition home or self-care (01) | DRG 776 ==
LOC: HOBED 15:37 → OBSVTOIN 17:46 → H2EA 17:46 → HIMN 23:38 → N04A 02-23 19:09
PROVIDERS: ADMIT Obstetrics & Gynecology; ATTEND Obstetrics & Gynecology
DX: O14.95 Unspecified pre-eclampsia, complicating the puerperium (principal); J81.0 Acute pulmonary edema; I16.1 Hypertensive emergency; E88.09 Other disorders of plasma-protein metabolism, not elsewhere classified; O90.81 Anemia of the puerperium; O12.05 Gestational edema, complicating the puerperium; Z79.899 Other long term (current) drug therapy
CPT/HCPCS: 36600; 71010; 71275; 80048; 80053; 81001; 82550; 82570; 82805; 83605; 83735; 83880; 84100; 84156; 84550; 85027; 85384; 85610; 85730; 87641; 93005; 93306; 93971; J0360; J1756; J2270; J7120; Q9967